=== PATIENT | male | born 1955 | race American Indian/Alaskan Native ===

== ENCOUNTER 2019-02-04 05:56 | Day surgery (SDC) | payer MEDICARE, OTHER ==
[2019-02-04] MEDS ORDERED: ECOTRIN PO ONE (06:23)
[2019-02-04 07:00] LABS: Basophils # (Auto) 0.1 K/mm3 (0.0-0.1); Basophils % (Auto) 1.1 % (0.0-1.8); Eosinophils # (Auto) 0.3 K/mm3 (0.0-0.4); Eosinophils % (Auto) 3.6 % (0.0-4.3); Hematocrit 40.7 % (35.5-45.6); Lymphocytes # (Auto) 2.5 K/mm3 (1.2-5.4); Lymphocytes % (Auto) 30.4 % (13.4-35.0); Mean Corpuscular HGB Conc 32 % (32-34); Mean Corpuscular Volume 78 fl (84-94); Monocytes # (Auto) 0.9 K/mm3 (0.0-0.8); Monocytes % (Auto) 11.2 % (0.0-7.3); Platelet Count 234 K/mm3 (140-440); Red Blood Count 5.26 M/mm3 (3.65-5.03)
[2019-02-04] MEDS ORDERED: NACL 0.9% 500 ML 500 ML IV SCH (07:00)
[2019-02-04 07:10] LABS: INR 1.16 (0.87-1.13); Partial Thromboplastin Time 32.6 Sec. (24.2-36.6)
[2019-02-04 07:14] LABS: BUN/Creatinine Ratio 10; Blood Urea Nitrogen 9 mg/dL (9-20); Calcium 8.2 mg/dL (8.4-10.2); Hemolysis Index 5
[2019-02-04] MEDS ORDERED: HEPARIN/NS 5000 UNIT/500ML(CATH LAB) 1,000 ML IR ONE (08:18)
[2019-02-04] MEDS ORDERED: CALAN ONE (08:19)
[2019-02-04] MEDS ORDERED: XYLOCAINE 2% INFILTRATI ONE (08:19)
[2019-02-04] MEDS ORDERED: NITROGLYCERIN SYRINGE 0 ML ONE (08:19)
[2019-02-04] MEDS: VERSED ONE ×2 (08:38→08:58)
[2019-02-04] MEDS: SUBLIMAZE ONE ×2 (08:38→08:58)
[2019-02-04] MEDS: HEPARIN 10,000 UNITS/10 ML ONE ×2 (08:44→08:57)
[2019-02-04] MEDS ORDERED: NACL 0.9% 100 ML ONE (09:14)
--- NOTE | 2019-02-04 10:28 | Cardiac Catherization Report ---
INDICATION FOR PROCEDURE: The patient is a 63-year-old -Lao gentleman with history of hypertension, diabetes, was noted to have abnormal stress nuclear imaging performed with ST depressions suggestive of ischemia. The patient is scheduled for cataract surgery. Because of abnormal nuclear imaging, even though he is asymptomatic, he is scheduled for cardiac catheterization for further evaluation. The patient was explained of the procedure, potential complications and alternatives of therapy available. DESCRIPTION OF PROCEDURE: The patient was brought to the catheterization laboratory in a fasting condition. The right wrist area and forearm thoroughly cleansed with Betadine solution. Sterile drapes were applied. The patient was evaluated for moderate sedation and was given IV Versed and fentanyl starting at 8:32 a.m. Subsequently, right radial artery puncture was made using 21-gauge arterial puncture needle. A 5-Iraqi slender sheath was introduced. The patient received 3000 units of intravenous heparin and 5 mg of intra-arterial verapamil. A 5-Iraqi multipurpose catheter was used to obtain the angiograms of the left coronary artery and right coronary artery, followed by left ventriculogram done in CASANOVA projection using hand injection. At the end of the procedure, the patient was noted to have moderate disease in the mid to distal RCA and it was decided to proceed with measurement of the FFR. Hence, procedure was converted to interventional procedure. Following findings were noted. HEMODYNAMICS: 1. Opening aortic pressure 210/111. Left ventricular pressure 208/23. End-diastolic pressure of 33 mmHg. No gradient across the aortic valve. Estimated ejection fraction 55%. 2. Left ventriculogram done in CASANOVA projection using hand injection showed normal sized left ventricle with normal contractility. End-diastolic and systolic volumes are normal. Mitral regurgitation could not be evaluated because of limited amount of dye injected. 3. Left coronary artery arises normally from left coronary cusp. Left main is short without any significant disease. LAD and its diagonal branches, circumflex artery and its marginal branches show mild irregularities diffusely. 4. Right coronary artery, dominant vessel, arises normally from right coronary cusp. There is 40% smooth mid lesion and also 60% long smooth distal lesion. Distal to this lesion, RCA is smooth and normal. RCA is tortuous. FINAL IMPRESSION: 1. Normal sized left ventricle with normal contractility with moderate mid and distal RCA lesion with mild irregularities of left coronary system. At this time, we will proceed with functional evaluation of the RCA lesions. 2. Measurement of FFR of the mid and distal RCA: The patient has indwelling 5-Iraqi sheath in right radial artery. Subsequently, a diagnostic catheter was exchanged to 6-Iraqi JR4 guiding catheter. The patient received extra dose of IV heparin. Subsequently, a pressure wire was advanced into the RCA. However, because of tortuosity of the RCA could not advance the wire. A second wire, namely Iron Man was used to give support to the guiding catheter and further attempts at advancing the pressure wire distal to the lesion. FFR was measured in a standard fashion using IV, it was found to be 0.84, after infusing the adenosine for 2 minutes. This was felt to be nonischemic finding. Final angiograms were obtained and no complications were noted. Wires and guiding catheter were removed. Good hemostasis was achieved in the radial artery using radial band. No untoward complications were noted. Moderate sedation was started at around 8:32 a.m., ended at 9:33 a.m. Throughout the procedure, the patient was monitored with pulse oximetry, EKG monitoring and hemodynamic monitoring. The patient does have intermittent AV block. Most likely, this may be Wenckebach type of block. Moderate disease in the mid and distal RCA and functional evaluation with FFR was found to be nonischemic with FFR of 0.84. Considering the above findings, the patient will be continued on risk factor modification and medical therapy. Also to be noted, the patient's blood pressure is significantly elevated throughout the procedure with systolic in the range of 200-210 mmHg. Findings were explained to the patient and . [facility]# [id number] GENE/DAVID
[2019-02-04] MEDS ORDERED: APRESOLINE PO SCH (11:20)
[2019-02-04] MEDS ORDERED: APRESOLINE ONE (11:25)
--- NOTE | 2019-02-04 12:06 | Short Stay Summary ---
Short Stay Documentation Date of service: 02/04/19 - History H&P: obtained from office - Allergies and Medications Current Medications: Allergies No Known Allergies Allergy (Unverified 02/04/19 05:57) Home Medications Medication Instructions Recorded Confirmed Last Taken Type Aspirin [Adult Aspirin] 81 mg PO DAILY 02/04/19 02/04/19 02/03/19 History Carvedilol [Coreg] 25 mg PO BID 02/04/19 02/04/19 02/03/19 History Ezetimibe [Zetia] 10 mg PO DAILY 02/04/19 02/04/19 02/03/19 History Fenofibric Acid (Choline) 135 mg PO DAILY 02/04/19 02/04/19 02/03/19 History [Fenofibric Acid] Insulin NPH Hum/Reg Insulin Hm 40 units SQ QPM 02/04/19 02/04/19 02/03/19 History [Relion Novolin 70-30 Vial] Insulin NPH/Regular [Novolin 70/30] 70 unit SQ QAM 02/04/19 02/04/19 02/03/19 History Rosuvastatin Calcium [Crestor] 20 mg PO DAILY 02/04/19 02/04/19 02/03/19 History Verapamil [Calan] 120 mg PO TID 02/04/19 02/04/19 02/03/19 History metFORMIN [Glucophage] 500 mg PO BID 02/04/19 02/04/19 02/03/19 History Active Medications Hydralazine HCl (Apresoline) 50 mg PO NOW MASHA Last Admin: 02/04/19 11:37 Dose: 50 mg Documented by: Sodium Chloride (Nacl 0.9% 500 Ml) 500 mls @ 50 mls/hr IV DIRECT MASHA Stop: 02/04/19 16:59 Last Admin: 02/04/19 06:54 Dose: 50 mls/hr Documented by: - Brief post op/procedure progress note Date of procedure: 02/04/19 Pre-op diagnosis: abnormal stress test Post-op diagnosis: other (CAD) Procedure: [facility] - see dictated cath report Anesthesia: local Estimated blood loss: none Condition: stable - Disposition Condition at discharge: Good Disposition: DC-01 TO HOME OR SELFCARE - Discharge Diagnoses (1) CAD (coronary artery disease) Status: Chronic (2) HTN (hypertension) Status: Chronic (3) Diabetes Status: Chronic Short Stay Discharge Plan Activity: advance as tolerated Diet: low fat, low cholesterol, low salt Wound: open to air, keep clean and dry, per your surgeon's advice Follow up with: CRYS REYES MD [Primary Care Provider] - 7 Days
[2019-02-04 13:20] VITALS: BP 176/70
== END 2019-02-04 13:35 | disposition home or self-care (01) ==
LOC: CATHLABREC 05:56
PROVIDERS: ATTEND Internal Medicine
DX: I25.10 Atherosclerotic heart disease of native coronary artery without angina pectoris (principal); I10 Essential (primary) hypertension; E11.9 Type 2 diabetes mellitus without complications; E78.5 Hyperlipidemia, unspecified; F17.210 Nicotine dependence, cigarettes, uncomplicated; R79.1 Abnormal coagulation profile; Z79.82 Long term (current) use of aspirin; Z79.4 Long term (current) use of insulin; Z79.84 Long term (current) use of oral hypoglycemic drugs; Z79.899 Other long term (current) drug therapy; Z98.890 Other specified postprocedural states
CPT/HCPCS: 36415; 80048; 85025; 85610; 85730; 93005; 93010; 93458; 93571; 99156; 99157; C1769; C1887; C1894; J0153; J1644; J2250; J3010; J7040; Q9967

== ENCOUNTER 2019-02-07 11:13 | Inpatient (IN) | payer MEDICARE, OTHER ==
[2019-02-07 13:08] LABS: Basophils # (Auto) 0.1 K/mm3 (0.0-0.1); Basophils % (Auto) 0.9 % (0.0-1.8); Eosinophils # (Auto) 0.2 K/mm3 (0.0-0.4); Eosinophils % (Auto) 1.6 % (0.0-4.3); Hematocrit 40.4 % (35.5-45.6); Hemoglobin 12.9 gm/dl (11.8-15.2); Lymphocytes # (Auto) 2.4 K/mm3 (1.2-5.4); Lymphocytes % (Auto) 24.8 % (13.4-35.0); Mean Corpuscular HGB Conc 32 % (32-34); Mean Corpuscular Volume 77 fl (84-94); Monocytes # (Auto) 0.9 K/mm3 (0.0-0.8); Monocytes % (Auto) 9.8 % (0.0-7.3); Platelet Count 251 K/mm3 (140-440); Red Blood Count 5.22 M/mm3 (3.65-5.03); Red Cell Distribution Width 17.7 % (13.2-15.2)
[2019-02-07 13:19] LABS: INR 1.04 (0.87-1.13)
[2019-02-07 13:23] LABS: Alanine Aminotransferase 10 units/L (7-56); Albumin 3.1 g/dL (3.9-5); BUN/Creatinine Ratio 11; Blood Urea Nitrogen 12 mg/dL (9-20); Calcium 8.7 mg/dL (8.4-10.2); Hemolysis Index 8
--- NOTE | 2019-02-07 13:25 | XRay Report ---
CHEST 1 VIEW INDICATION: chest pain. COMPARISON: None. FINDINGS: Support devices: None. Heart: Normal. Lungs/Pleura: Mild diffuse predominantly interstitial bilateral pulmonary opacities are noted suggest khang of pulmonary edema. There may be a trace right pleural effusion. No pneumothorax. IMPRESSION: 1. Mild diffuse interstitial opacities are suggestive of mild pulmonary edema. Signer Name: Frank Plascencia MD Signed: 02/07/2019 1:20 PM Workstation Name: [id number]
--- NOTE | 2019-02-07 14:14 | Consultation ---
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 He is followed in our office with Dr. Hanks. Pt underwent OP LHC (pt is pending eye surgery, underwent stress test which was abnormal and thus LHC) on 02/04/2019 which showed moderate disease in mid and distal RCA, medical therapy recommended. He presented to our office today for post-cath f/u and c/o dizziness since this morning. ECG in office showed junctional rhythm at 32 bpm, complete AV block with underlying junctional escape beatsand thus pt was referred to ED for further eval/management. Following arrival to ED, pt found to be in sinus bradycardia HR 40s with intermittent junctional rhythm and 2nd degree type I and II AVB. Pt is alert and oriented on evaluation with BPs WNL, no current complaints. Pt has been taking coreg 25mg BID at home and he reports his last dose of coreg was this morning. Pt denies any chest pain, SOB, palpitations, n/v, diaphoresis, dizziness or syncope. Echo done 01/20/2019 showed EF 55-60%, mild LVH. Past History Past Medical History: arrhythmia, CAD, diabetes, hypertension, hyperlipidemia Medications and Allergies Allergies Allergy/AdvReac Type Severity Reaction Status Date / Time No Known Allergies Allergy Unverified 02/04/19 05:57 Home Medications Medication Instructions Recorded Confirmed Last Taken Type Aspirin [Adult Aspirin] 81 mg PO DAILY 02/04/19 02/04/19 02/03/19 History Carvedilol [Coreg] 25 mg PO BID 02/04/19 02/04/19 02/03/19 History Ezetimibe [Zetia] 10 mg PO DAILY 02/04/19 02/04/19 02/03/19 History Fenofibric Acid (Choline) 135 mg PO DAILY 02/04/19 02/04/19 02/03/19 History [Fenofibric Acid] Insulin NPH Hum/Reg Insulin Hm 40 units SQ QPM 02/04/19 02/04/19 02/03/19 History [Relion Novolin 70-30 Vial] Insulin NPH/Regular [Novolin 70/30] 70 unit SQ QAM 02/04/19 02/04/19 02/03/19 History Rosuvastatin Calcium [Crestor] 20 mg PO DAILY 02/04/19 02/04/19 02/03/19 History Verapamil [Calan] 120 mg PO TID 02/04/19 02/04/19 02/03/19 History metFORMIN [Glucophage] 500 mg PO BID 02/04/19 02/04/19 02/03/19 History Review of Systems Constitutional: no weight loss, no weight gain, no fever, no chills, no sweats Ears, nose, mouth and throat: no ear pain, no nose pain, no sinus pressure, no sinus pain Cardiovascular: lightheadedness, no chest pain, no orthopnea, no palpitations, no rapid/irregular heart beat, no edema, no syncope, no shortness of breath, no dyspnea on exertion, no leg edema Respiratory: no cough, no shortness of breath, no dyspnea on exertion, no con gestion, no wheezing, no pain on inspiration Gastrointestinal: no abdominal pain, no nausea, no vomiting, no diarrhea, no constipation, no change in bowel habits Genitourinary Male: no dysuria, no hematuria, no flank pain, no discharge, no urinary frequency, no urinary hesitancy Musculoskeletal: no neck stiffness, no neck pain, no shooting arm pain, no arm numbness/tingling, no low back pain, no shooting leg pain Integumentary: no rash, no pruritis, no redness, no sores, no wounds Neurological: weakness (generalized ), other (lightheadedness), no head injury, no paralysis, no parathesias, no numbness, no tingling, no seizures, no syncope Psychiatric: no anxiety Endocrine: no cold intolerance, no heat intolerance Hematologic/Lymphatic: no easy bruising, no easy bleeding Allergic/Immunologic: no urticaria, no wheezing Physical Examination Vital Signs Temp Pulse Resp BP Pulse Ox 98.1 F 47 L 18 124/64 95 02/07/19 11:45 02/07/19 11:45 02/07/19 11:45 02/07/19 11:45 02/07/19 11:45 General appearance: no acute distress HEENT: Positive: PERRL, Normocephaly, Mucus Membranes Moist Neck: Positive: neck supple, trachea midline Cardiac: Positive: S1/S2, Bradycardia Lungs: Positive: Decreased Breath Sounds Neuro: Positive: Grossly Intact Abdomen: Negative: Tender Skin: Negative: Rash Musculoskeletal: No Pain Extremities: Absent: edema Results 02/07/19 12:44 02/07/19 12:44 Cardiac Enzymes 02/07/19 Range/Units 12:44 AST 17 (5-40) units/L Coagulation 02/07/19 Range/Units 12:44 PT 13.3 (12.2-14.9) Sec. INR 1.04 (0.87-1.13) APTT 33.0 (24.2-36.6) Sec. CBC 02/07/19 Range/Units 12:44 WBC 9.6 (4.5-11.0) K/mm3 RBC 5.22 H (3.65-5.03) M/mm3 Hgb 12.9 (11.8-15.2) gm/dl Hct 40.4 (35.5-45.6) % Plt Count 251 (140-440) K/mm3 Lymph # 2.4 (1.2-5.4) K/mm3 Hawkins # 0.9 H (0.0-0.8) K/mm3 Eos # 0.2 (0.0-0.4) K/mm3 Baso # 0.1 (0.0-0.1) K/mm3 Comprehensive Metabolic Panel 02/07/19 Range/Units 12:44 Sodium 136 L (137-145) mmol/L Potassium 4.6 D (3.6-5.0) mmol/L Chloride 100.2 (98-107) mmol/L Carbon Dioxide 27 (22-30) mmol/L BUN 12 (9-20) mg/dL Creatinine 1.1 (0.8-1.5) mg/dL Glucose 98 (75-100) mg/dL Calcium 8.7 (8.4-10.2) mg/dL AST 17 (5-40) units/L ALT 10 (7-56) units/L Alkaline Phosphatase 79 (35-129) units/L Total Protein 7.0 (6.3-8.2) g/dL Albumin 3.1 L (3.9-5) g/dL - Imaging and Cardiology Echo: report reviewed (01/20/2019 showed EF 55-60%, mild LVH. ) Cardiac cath: report reviewed (02/04/2019 which showed moderate disease in mid and distal RCA, medical therapy recommended) EKG: report reviewed, image reviewed EKG interpretations - Telemetry EKG Rhythm: 2nd Degree HB(Mobitz II) AV and intraventricular conduction: Mobitz II 2 AV block Assessment and Plan D/c coreg, hold all AV isauro blocking agents. Initiate IVF. Obtain serum Mg and thyroid profile. Pt currently appears clinically and hemodynamically stable, no indication for TVP. Obtain EP consultation for possible PPM. NPO after MN in the event that pacemaker is required. Further recs to follow per hospital course. The patient has been seen in conjunction with Dr. Ke Srivastava who agrees with the assessment and plan of care. - Patient Problems (1) High degree atrioventricular block Current Visit: Yes Status: Acute (2) Symptomatic bradycardia Current Visit: Yes Status: Acute (3) Nonobstructive atherosclerosis of coronary artery Current Visit: Yes Status: Chronic (4) Hyperlipidemia Current Visit: Yes Status: Chronic (5) Diabetes Current Visit: Yes Status: Chronic (6) HTN (hypertension) Current Visit: Yes Status: Chronic
--- NOTE | 2019-02-07 14:51 | Emergency Department Report ---
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 Patient states that upon standing to go from the lobby of his physician's office to the exam room to get really dizzy and almost passed out. Patient status post a cardiac cath is currently on Coreg. Upon EMS arrival the patient's heart rate was in the 30s and was given 1 mg of atropine. Patient states besides being dizzy initially has no complaints. Patient has chest pain, shortness breath, or abdominal pain. -: Gradual Severity scale (0 -10): 0 Improves with: none Worsens with: none Associated Symptoms: denies other symptoms Treatments Prior to Arrival: none - Related Data Home Medications Medication Instructions Recorded Confirmed Last Taken Aspirin [Adult Aspirin] 81 mg PO DAILY 02/04/19 02/04/19 02/03/19 Carvedilol [Coreg] 25 mg PO BID 02/04/19 02/04/19 02/03/19 Ezetimibe [Zetia] 10 mg PO DAILY 02/04/19 02/04/19 02/03/19 Fenofibric Acid (Choline) 135 mg PO DAILY 02/04/19 02/04/19 02/03/19 [Fenofibric Acid] Insulin NPH Hum/Reg Insulin Hm 40 units SQ QPM 02/04/19 02/04/19 02/03/19 [Relion Novolin 70-30 Vial] Insulin NPH/Regular [Novolin 70/30] 70 unit SQ QAM 02/04/19 02/04/19 02/03/19 Rosuvastatin Calcium [Crestor] 20 mg PO DAILY 02/04/19 02/04/19 02/03/19 Verapamil [Calan] 120 mg PO TID 02/04/19 02/04/19 02/03/19 metFORMIN [Glucophage] 500 mg PO BID 02/04/19 02/04/19 02/03/19 Allergies Allergy/AdvReac Type Severity Reaction Status Date / Time No Known Allergies Allergy Unverified 02/04/19 05:57 ED Review of Systems ROS: Stated complaint: BRADYCARDIA Other details as noted in HPI Comment: All other systems reviewed and negative Constitutional: denies: chills, fever Eyes: denies: eye pain, eye discharge, vision change ENT: denies: ear pain, throat pain Respiratory: denies: cough, shortness of breath, wheezing Cardiovascular: denies: chest pain, palpitations Endocrine: no symptoms reported Gastrointestinal: denies: abdominal pain, nausea, diarrhea Genitourinary: denies: urgency, dysuria Musculoskeletal: denies: back pain, joint swelling, arthralgia Skin: denies: rash, lesions Neurological: denies: headache, weakness, paresthesias Psychiatric: denies: anxiety, depression Hematological/Lymphatic: denies: easy bleeding, easy bruising ED Past Medical Hx - Past Medical History Previous Medical History?: Yes Hx Hypertension: Yes Hx Heart Attack/AMI: No Hx Diabetes: Yes Hx HIV: No - Social History Smoking Status: Current Some Day Smoker Substance Use Type: Alcohol - Medications Home Medications: Home Medications Medication Instructions Recorded Confirmed Last Taken Type Aspirin [Adult Aspirin] 81 mg PO DAILY 02/04/19 02/04/19 02/03/19 History Carvedilol [Coreg] 25 mg PO BID 02/04/19 02/04/19 02/03/19 History Ezetimibe [Zetia] 10 mg PO DAILY 02/04/19 02/04/19 02/03/19 History Fenofibric Acid (Choline) 135 mg PO DAILY 02/04/19 02/04/19 02/03/19 History [Fenofibric Acid] Insulin NPH Hum/Reg Insulin Hm 40 units SQ QPM 02/04/19 02/04/19 02/03/19 History [Relion Novolin 70-30 Vial] Insulin NPH/Regular [Novolin 70/30] 70 unit SQ QAM 02/04/19 02/04/19 02/03/19 History Rosuvastatin Calcium [Crestor] 20 mg PO DAILY 02/04/19 02/04/19 02/03/19 History Verapamil [Calan] 120 mg PO TID 02/04/19 02/04/19 02/03/19 History metFORMIN [Glucophage] 500 mg PO BID 02/04/19 02/04/19 02/03/19 History ED Physical Exam - General Limitations: No Limitations General appearance: alert, in no apparent distress - Head Head exam: Present: atraumatic, normocephalic - Eye Eye exam: Present: normal appearance - ENT ENT exam: Present: mucous membranes moist - Neck Neck exam: Present: normal inspection - Respiratory Respiratory exam: Present: normal lung sounds bilaterally. Absent: respiratory distress - Cardiovascular Cardiovascular Exam: Present: normal rhythm, bradycardia. Absent: systolic murmur, diastolic murmur, rubs, gallop - GI/Abdominal GI/Abdominal exam: Present: soft, normal bowel sounds. Absent: distended, tenderness - Rectal Rectal exam: Present: deferred - Extremities Exam Extremities exam: Present: normal inspection - Back Exam Back exam: Present: normal inspection - Neurological Exam Neurological exam: Present: alert, oriented X3, CN II-XII intact. Absent: motor sensory deficit - Psychiatric Psychiatric exam: Present: normal affect, normal mood - Skin Skin exam: Present: warm, dry, intact, normal color. Absent: rash ED Course Vital Signs 02/07/19 02/07/19 02/07/19 11:45 11:59 14:03 Temperature 98.1 F Pulse Rate 47 L 37 L Respiratory 18 18 21 Rate Blood Pressure 124/64 Blood Pressure 124/64 141/62 [Right] O2 Sat by Pulse 95 95 99 Oximetry ED Medical Decision Making - Lab Data Result diagrams: 02/07/19 12:44 02/07/19 12:44 Lab Results 02/07/19 02/07/19 02/07/19 Range/Units 12:44 12:44 12:44 WBC 9.6 (4.5-11.0) K/mm3 RBC 5.22 H (3.65-5.03) M/mm3 Hgb 12.9 (11.8-15.2) gm/dl Hct 40.4 (35.5-45.6) % MCV 77 L (84-94) fl MCH 25 L (28-32) pg MCHC 32 (32-34) % RDW 17.7 H (13.2-15.2) % Plt Count 251 (140-440) K/mm3 Lymph % (Auto) 24.8 (13.4-35.0) % Riley % (Auto) 9.8 H (0.0-7.3) % Eos % (Auto) 1.6 (0.0-4.3) % Baso % (Auto) 0.9 (0.0-1.8) % Lymph # 2.4 (1.2-5.4) K/mm3 Riley # 0.9 H (0.0-0.8) K/mm3 Eos # 0.2 (0.0-0.4) K/mm3 Baso # 0.1 (0.0-0.1) K/mm3 Seg Neutrophils % 62.9 (40.0-70.0) % Seg Neutrophils # 6.0 (1.8-7.7) K/mm3 PT 13.3 (12.2-14.9) Sec. INR 1.04 (0.87-1.13) APTT 33.0 (24.2-36.6) Sec. Sodium 136 L (137-145) mmol/L Potassium 4.6 D (3.6-5.0) mmol/L Chloride 100.2 (98-107) mmol/L Carbon Dioxide 27 (22-30) mmol/L Anion Gap 13 mmol/L BUN 12 (9-20) mg/dL Creatinine 1.1 (0.8-1.5) mg/dL Estimated GFR > 60 ml/min BUN/Creatinine Ratio 11 % Glucose 98 (75-100) mg/dL Calcium 8.7 (8.4-10.2) mg/dL Total Bilirubin 0.30 (0.1-1.2) mg/dL AST 17 (5-40) units/L ALT 10 (7-56) units/L Alkaline Phosphatase 79 (35-129) units/L NT-Pro-B Natriuret Pep 335.6 (0-900) pg/mL Total Protein 7.0 (6.3-8.2) g/dL Albumin 3.1 L (3.9-5) g/dL Albumin/Globulin Ratio 0.8 % - EKG Data -: EKG Interpreted by Hi EKG shows normal: sinus rhythm Rate: bradycardia - Radiology Data Radiology results: report reviewed - Medical Decision Making Patient was seen by cardiology in the ED Coreg would be discontinued Critical care attestation.: If time is entered above; I have spent that time in minutes in the direct care of this critically ill patient, excluding procedure time. ED Disposition Clinical Impression: Symptomatic bradycardia Disposition: OP ADMIT IP TO THIS HOSP Is pt being admited?: Yes Does the pt Need Aspirin: Yes Condition: Fair Referrals: CRYS REYES MD [Primary Care Provider] - 3-5 Days
[2019-02-07] MEDS ORDERED: SODIUM CHLORIDE 0.9% 1000 ML 1,000 ML IV SCH (15:00)
[2019-02-07] MEDS ORDERED: HYDROmorphone 1 MG/1 ML INJ IV PRN (17:31)
[2019-02-07] MEDS ORDERED: ACETAMINOPHEN 325 MG TAB PO PRN (17:31)
[2019-02-07] MEDS ORDERED: ONDANSETRON 4 MG/2 ML INJ IV PRN (17:31)
[2019-02-07] MEDS ORDERED: FENOFIBRIC ACID 135 MG PO SCH (17:45)
[2019-02-07] MEDS ORDERED: NON-FORMULARY EACH (Rosuvastatin Calcium [Crestor] 20 MG) PO SCH (17:45)
--- NOTE | 2019-02-07 18:54 | Progress Note ---
Assessment and Plan 63 Nonobstructive CAD Hypertension Hyperlipidemia Intermittent complete heart block/symptomatic bradycardia. I had a lengthy discussion with the patient and his regarding my recommendations for dual- chamber permanent pacemaker. They are in agreement. We will schedule him as an inpatient. Subjective Date of service: 02/07/19 Principal diagnosis: intermittent complete heart block Interval history: This is a 63-year-old male with a past medical history of nonobstructive CAD, hypertension, and hyperlipidemia who recently underwent a left heart catheterization was 02/04/2019 and noted to have moderate disease of the right coronary artery with recommendations for medical management at this time. The patient presented to his primary etl developer's office with complaints of dizziness and lightheadedness. An EKG reveals complete heart block with a junctional escape rhythm at 32 bpm. Objective Vital Signs Temp Pulse Resp BP BP Pulse Ox 02/07/19 18:01 50 L 15 151/44 92 02/07/19 17:01 42 L 12 130/59 91 02/07/19 16:15 35 L 11 L 124/59 98 02/07/19 16:01 34 L 26 H 124/59 97 02/07/19 15:45 33 L 24 120/51 99 02/07/19 15:31 32 L 17 120/51 97 02/07/19 15:15 34 L 19 126/33 97 02/07/19 15:03 37 L 20 141/62 99 02/07/19 15:01 38 L 25 H 126/33 96 02/07/19 14:45 35 L 22 143/112 98 02/07/19 14:31 40 L 10 L 143/112 93 02/07/19 14:15 34 L 20 141/62 97 02/07/19 14:03 37 L 21 141/62 99 02/07/19 14:01 36 L 26 H 141/62 97 02/07/19 13:45 33 L 19 139/65 98 02/07/19 13:31 35 L 22 139/65 98 02/07/19 13:15 39 L 16 132/62 97 02/07/19 13:01 36 L 14 132/62 96 02/07/19 12:45 36 L 20 128/59 96 02/07/19 12:31 42 L 15 128/59 97 02/07/19 12:15 39 L 20 133/63 96 02/07/19 12:01 38 L 22 133/63 98 02/07/19 11:59 18 95 02/07/19 11:45 98.1 F 42 L 16 124/64 124/64 97 02/07/19 11:30 52 L 15 124/64 99 02/07/19 11:24 17 - Physical Examination HEENT: Positive: PERRL, Normocephaly, Mucus Membranes Moist Neck: Positive: neck supple, trachea midline Cardiac: Positive: Reg Rate and Rhythm Lungs: Positive: Normal Exam Neuro: Positive: Grossly Intact Abdomen: Positive: Soft, Active Bowel Sounds. Negative: Tender Skin: Negative: Rash Musculoskeletal: No Pain Extremities: Absent: edema - Labs and Meds Cardiac Enzymes 02/07/19 Range/Units 12:44 AST 17 (5-40) units/L Coagulation 02/07/19 Range/Units 12:44 PT 13.3 (12.2-14.9) Sec. INR 1.04 (0.87-1.13) APTT 33.0 (24.2-36.6) Sec. CBC 02/07/19 Range/Units 12:44 WBC 9.6 (4.5-11.0) K/mm3 RBC 5.22 H (3.65-5.03) M/mm3 Hgb 12.9 (11.8-15.2) gm/dl Hct 40.4 (35.5-45.6) % Plt Count 251 (140-440) K/mm3 Lymph # 2.4 (1.2-5.4) K/mm3 Davie # 0.9 H (0.0-0.8) K/mm3 Eos # 0.2 (0.0-0.4) K/mm3 Baso # 0.1 (0.0-0.1) K/mm3 Comprehensive Metabolic Panel 02/07/19 Range/Units 12:44 Sodium 136 L (137-145) mmol/L Potassium 4.6 D (3.6-5.0) mmol/L Chloride 100.2 (98-107) mmol/L Carbon Dioxide 27 (22-30) mmol/L BUN 12 (9-20) mg/dL Creatinine 1.1 (0.8-1.5) mg/dL Glucose 98 (75-100) mg/dL Calcium 8.7 (8.4-10.2) mg/dL AST 17 (5-40) units/L ALT 10 (7-56) units/L Alkaline Phosphatase 79 (35-129) units/L Total Protein 7.0 (6.3-8.2) g/dL Albumin 3.1 L (3.9-5) g/dL - Imaging and Cardiology EKG: report reviewed, image reviewed Echo: report reviewed (01/20/2019 showed EF 55-60%, mild LVH. ) Cardiac cath: report reviewed (02/04/2019 which showed moderate disease in mid and distal RCA, medical therapy recommended) AV and intraventricular conduction: Mobitz II 2 AV block
[2019-02-07] MEDS: INSULIN NPH/REGULAR 70/30 INJ SUB-Q SCH (22:30)
[2019-02-07] MEDS: FAMOTIDINE 20 MG/2 ML INJ IV SCH (22:30)
[2019-02-07] MEDS: metFORMIN 500 MG TAB PO SCH (22:30)
[2019-02-08 05:38] LABS: INR 1.06 (0.87-1.13)
[2019-02-08 05:39] LABS: Hematocrit 38.3 % (35.5-45.6); Hemoglobin 12.1 gm/dl (11.8-15.2); Mean Corpuscular HGB Conc 32 % (32-34); Mean Corpuscular Volume 77 fl (84-94); Platelet Count 243 K/mm3 (140-440); Red Blood Count 4.98 M/mm3 (3.65-5.03); Red Cell Distribution Width 17.8 % (13.2-15.2)
--- NOTE | 2019-02-08 05:58 | History and Physical Report ---
History of Present Illness Date of examination: 02/07/19 Date of admission: 02/07/19 17:31 Chief complaint: Dizzy and near Syncope this am in Medical Practice Manager office History of present illness: 63 y/o male Patient presents to the emergency department from his piper installer's office for bradycardia. Patient states that upon standing to go from the lobby of his physician's office to the exam room he got really dizzy and almost passed out. Patient is status post cardiac cath currently on Coreg and Verapamil. Upon EMS arrival the patient's heart rate was in the 30s and was given 1 mg of atropine. Patient states besides being dizzy initially has no complaints. Patient has no chest pain, shortness breath, or abdominal pain. 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 Pt underwent OP LHC --pending eye surgery, underwent stress test which was abnormal and thus LHC on 02/04/2019 which showed moderate disease in mid and distal RCA, medical therapy recommended. Presented to [facility] office --Dr Hanks today for post- cath f/u and c/o dizziness since this morning. ECG in office showed junctional rhythm at 32 bpm, complete AV block with underlying junctional escape beats and thus pt was referred to ED for further eval/management. Echo done 01/20/2019 showed EF 55-60%, mild LVH. Past Medical History Previous Medical History?: Yes Hypertension: Yes Heart Attack/AMI: No Diabetes: Yes Surgical History LHC Family History Htn Social History Smoking Status: Current Some Day Smoker Substance Use Type: Alcohol - Medications Home Medications: Home Medications Medication Instructions Recorded Confirmed Last Taken Type Aspirin [Adult Aspirin] 81 mg PO DAILY 02/04/19 02/04/19 02/03/19 History Carvedilol [Coreg] 25 mg PO BID 02/04/19 02/04/19 02/03/19 History Ezetimibe [Zetia] 10 mg PO DAILY 02/04/19 02/04/19 02/03/19 History Fenofibric Acid (Choline) 135 mg PO DAILY 02/04/19 02/04/19 02/03/19 History [Fenofibric Acid] Insulin NPH Hum/Reg Insulin Hm 40 units SQ QPM 02/04/19 02/04/19 02/03/19 History [Relion Novolin 70-30 Vial] Insulin NPH/Regular [Novolin 70/30] 70 unit SQ QAM 02/04/19 02/04/19 02/03/19 History Rosuvastatin Calcium [Crestor] 20 mg PO DAILY 02/04/19 02/04/19 02/03/19 History Verapamil [Calan] 120 mg PO TID 02/04/19 02/04/19 02/03/19 History metFORMIN [Glucophage] 500 mg PO BID 02/04/19 02/04/19 02/03/19 History Review of Systems Constitutional: no weight loss, no weight gain, no fever, no chills, no sweats Ears, nose, mouth and throat: no ear pain, no nose pain, no sinus pressure, no sinus pain Cardiovascular: lightheadedness, no chest pain, no orthopnea, no palpitations, no rapid/irregular heart beat, no edema, no syncope, no shortness of breath, no dyspnea on exertion, no leg edema Respiratory: no cough, no shortness of breath, no dyspnea on exertion, no congestion, no wheezing, no pain on inspiration Gastrointestinal: no abdominal pain, no nausea, no vomiting, no diarrhea, no constipation, no change in bowel habits Genitourinary Male: no dysuria, no hematuria, no flank pain, no discharge, no urinary frequency, no urinary hesitancy Musculoskeletal: no neck stiffness, no neck pain, no shooting arm pain, no arm numbness/tingling, no low back pain, no shooting leg pain Integumentary: no rash, no pruritis, no redness, no sores, no wounds Neurological: weakness (generalized ), other (lightheadedness), no head injury, no paralysis, no parathesias, no numbness, no tingling, no seizures, no syncope Psychiatric: no anxiety Endocrine: no cold intolerance, no heat intolerance Hematologic/Lymphatic: no easy bruising, no easy bleeding Allergic/Immunologic: no urticaria, no wheezing Past History Past Medical History: arrhythmia, CAD, diabetes, hypertension, hyperlipidemia Medications and Allergies Allergies Allergy/AdvReac Type Severity Reaction Status Date / Time No Known Allergies Allergy Unverified 02/04/19 05:57 Home Medications Medication Instructions Recorded Confirmed Last Taken Type Aspirin [Adult Aspirin] 81 mg PO DAILY 02/04/19 02/07/19 02/07/19 History Carvedilol [Coreg] 25 mg PO BID 02/04/19 02/07/19 02/07/19 History Ezetimibe [Zetia] 10 mg PO DAILY 02/04/19 02/07/19 02/07/19 History Fenofibric Acid (Choline) 135 mg PO DAILY 02/04/19 02/07/19 02/07/19 History [Fenofibric Acid] Insulin NPH Hum/Reg Insulin Hm 40 units SQ QPM 02/04/19 02/07/19 02/06/19 History [Relion Novolin 70-30 Vial] Insulin NPH/Regular [Novolin 70/30] 70 unit SQ QAM 02/04/19 02/07/19 02/06/19 History Rosuvastatin Calcium [Crestor] 20 mg PO DAILY 02/04/19 02/07/19 02/07/19 History Verapamil [Calan] 120 mg PO TID 02/04/19 02/07/19 02/07/19 History metFORMIN [Glucophage] 500 mg PO BID 02/04/19 02/07/19 02/07/19 History Active Meds: Active Medications Acetaminophen (Tylenol) 650 mg PO Q4H PRN PRN Reason: Pain MILD(1-3)/Fever >100.5/AYALA Aspirin (Aspirin) 325 mg PO QDAY [facility] Atorvastatin Calcium (Lipitor) 40 mg PO QHS [facility] Last Admin: 02/07/19 22:30 Dose: 40 mg Documented by: Ezetimibe (Zetia) 10 mg PO DAILY [facility] Famotidine (Pepcid) 20 mg IV BID [facility] Last Admin: 02/07/19 22:30 Dose: 20 mg Documented by: Hydromorphone HCl (Dilaudid) 0.5 mg IV Q3H PRN PRN Reason: Pain , Severe (7-10) Sodium Chloride (Nacl 0.9% 1000 Ml) 1,000 mls @ 75 mls/hr IV DIRECT [facility] Last Admin: 02/07/19 22:35 Dose: 75 mls/hr Documented by: Insulin Human Isoph/Insulin Regular (Humulin 70/30) 40 unit SUB-Q QPM [facility] Last Admin: 02/07/19 22:30 Dose: Not Given Documented by: Insulin Human Isoph/Insulin Regular (Humulin 70/30) 70 unit SUB-Q QAMDIAB [facility] Metformin HCl (Glucophage) 500 mg PO BID [facility] Last Admin: 02/07/19 22:30 Dose: Not Given Documented by: Miscellaneous Medication (Fenofibric Acid (Choline) [Fenofibric Acid]) 135 mg PO DAILY [facility] Ondansetron HCl (Zofran) 4 mg IV Q8H PRN PRN Reason: Nausea And Vomiting Oxycodone/Acetaminophen (Percocet 5/325) 1 tab PO Q6H PRN PRN Reason: Pain, Moderate (4-6) Sodium Chloride (Sodium Chloride Flush Syringe 10 Ml) 10 ml IV BID [facility] Last Admin: 02/07/19 22:30 Dose: 10 ml Documented by: Sodium Chloride (Sodium Chloride Flush Syringe 10 Ml) 10 ml IV PRN PRN PRN Reason: LINE FLUSH Exam - Constitutional Vitals: Temp Pulse Resp BP Pulse Ox 98.5 F 51 L 16 161/66 93 02/08/19 03:25 02/08/19 03:25 02/08/19 03:25 02/08/19 03:25 02/08/19 03:25 General appearance: Present: no acute distress, well-nourished - EENT Eyes: Present: PERRL ENT: hearing intact, clear oral mucosa - Neck Neck: Present: supple, normal ROM - Respiratory Respiratory effort: normal Respiratory: bilateral: CTA - Cardiovascular Heart rate: 36 Rhythm: regular Heart Sounds: Present: S1 & S2. Absent: rub, click - Extremities Extremities: no ischemia, pulses intact, pulses symmetrical, No edema Peripheral Pulses: within normal limits - Abdominal General gastrointestinal: Present: soft, non-tender, non-distended, normal bowel sounds Male genitourinary: Present: normal - Rectal Rectal Exam: deferred - Integumentary Integumentary: Present: clear, warm, dry - Musculoskeletal Musculoskeletal: gait normal, strength equal bilaterally - Psychiatric Psychiatric: appropriate mood/affect, intact judgment & insight - Neurologic Neurologic: CNII-XII intact, moves all extremities - Allied Health Allied health notes reviewed: nursing, case management Results - Labs CBC & Chem 7: 02/08/19 04:47 02/08/19 04:47 Labs: Laboratory Last Values WBC 9.2 K/mm3 (4.5-11.0) 02/08/19 04:47 RBC 4.98 M/mm3 (3.65-5.03) 02/08/19 04:47 Hgb 12.1 gm/dl (11.8-15.2) 02/08/19 04:47 Hct 38.3 % (35.5-45.6) 02/08/19 04:47 MCV 77 fl (84-94) L 02/08/19 04:47 MCH 24 pg (28-32) L 02/08/19 04:47 MCHC 32 % (32-34) 02/08/19 04:47 RDW 17.8 % (13.2-15.2) H 02/08/19 04:47 Plt Count 243 K/mm3 (140-440) 02/08/19 04:47 Lymph % (Auto) 24.8 % (13.4-35.0) 02/07/19 12:44 [place] % (Auto) 9.8 % (0.0-7.3) H 02/07/19 12:44 Eos % (Auto) 1.6 % (0.0-4.3) 02/07/19 12:44 Baso % (Auto) 0.9 % (0.0-1.8) 02/07/19 12:44 Lymph # 2.4 K/mm3 (1.2-5.4) 02/07/19 12:44 [place] # 0.9 K/mm3 (0.0-0.8) H 02/07/19 12:44 Eos # 0.2 K/mm3 (0.0-0.4) 02/07/19 12:44 Baso # 0.1 K/mm3 (0.0-0.1) 02/07/19 12:44 Seg Neutrophils % 62.9 % (40.0-70.0) 02/07/19 12:44 Seg Neutrophils # 6.0 K/mm3 (1.8-7.7) 02/07/19 12:44 PT 13.5 Sec. (12.2-14.9) 02/08/19 04:47 INR 1.06 (0.87-1.13) 02/08/19 04:47 APTT 33.0 Sec. (24.2-36.6) 02/07/19 12:44 Sodium 136 mmol/L (137-145) L 02/07/19 12:44 Potassium 4.6 mmol/L (3.6-5.0) D 02/07/19 12:44 Chloride 100.2 mmol/L (98-107) 02/07/19 12:44 Carbon Dioxide 27 mmol/L (22-30) 02/07/19 12:44 13 mmol/L 02/07/19 12:44 BUN 12 mg/dL (9-20) 02/07/19 12:44 1.1 mg/dL (0.8-1.5) 02/07/19 12:44 Estimated GFR > 60 ml/min 02/07/19 12:44 11 % 02/07/19 12:44 Glucose 98 mg/dL (75-100) 02/07/19 12:44 POC Glucose 123 (70-105) H 02/07/19 21:48 9.5 % (4-6) H 02/07/19 12:44 Calcium 8.7 mg/dL (8.4-10.2) 02/07/19 12:44 Magnesium 1.90 mg/dL (1.7-2.3) 02/07/19 14:47 0.30 mg/dL (0.1-1.2) 02/07/19 12:44 AST 17 units/L (5-40) 02/07/19 12:44 ALT 10 units/L (7-56) 02/07/19 12:44 79 units/L (35-129) 02/07/19 12:44 NT-Pro-B Natriuret Pep 335.6 pg/mL (0-900) 02/07/19 12:44 7.0 g/dL (6.3-8.2) 02/07/19 12:44 3.1 g/dL (3.9-5) L 02/07/19 12:44 0.8 % 02/07/19 12:44 TSH 3.700 mlU/mL (0.270-4.200) 02/07/19 14:47 Free T4 0.93 ng/dL (0.76-1.46) 02/07/19 14:46 - Imaging and Cardiology EKG: report reviewed (Sinus bradycardia--50/min) Chest x-ray: report reviewed (NAF) Imaging and Cardiology: CXR IMPRESSION: 1. Mild diffuse interstitial opacities are suggestive of mild pulmonary edema. Assessment and Plan Advance Directives: Yes (Full code) VTE prophylaxis?: Chemical Plan of care discussed with patient/family: Yes - Patient Problems (1) Symptomatic bradycardia Current Visit: Yes Status: Acute Plan to address problem: Stop AV isauro blockers Stop beta blockers Cardiolgy consult Atropine given (2) HTN (hypertension) Current Visit: Yes Status: Chronic Qualifiers: Hypertension type: essential hypertension Qualified Code(s): I10 - Essential (primary) hypertension Plan to address problem: Cont antihypertensives (3) IDDM (insulin dependent diabetes mellitus) Current Visit: Yes Status: Chronic Plan to address problem: Cont home Insulin and coverage Check A1c (4) Hyperlipidemia Current Visit: Yes Status: Chronic Qualifiers: Hyperlipidemia type: mixed hyperlipidemia Qualified Code(s): E78.2 - Mixed hyperlipidemia Plan to address problem: Cont statins and fenofibrate (5) Nonobstructive atherosclerosis of coronary artery Current Visit: Yes Status: Chronic Plan to address problem: Had C last week ASA and Statins (6) DVT prophylaxis Current Visit: Yes Status: Acute Plan to address problem: On Lovenox and GI prophylaxis
[2019-02-08 05:59] LABS: BUN/Creatinine Ratio 11; Blood Urea Nitrogen 11 mg/dL (9-20); Calcium 8.4 mg/dL (8.4-10.2); Hemolysis Index 2
[2019-02-08] MEDS: INSULIN NPH/REGULAR 70/30 INJ SUB-Q SCH ×2 (08:00→19:12)
[2019-02-08] MEDS ORDERED: ASPIRIN 325 MG TAB PO SCH (10:00)
[2019-02-08] MEDS: EZETIMIBE 10 MG TAB PO SCH (10:00)
[2019-02-08] MEDS ORDERED: FENOFIBRATE 145 MG TAB PO SCH (10:00)
[2019-02-08] MEDS: metFORMIN 500 MG TAB PO SCH ×2 (10:00→22:07)
[2019-02-08] MEDS ORDERED: ASPIRIN EC 81 MG TAB PO SCH (10:00)
--- NOTE | 2019-02-08 10:06 | Progress Note ---
Assessment and Plan Cont to hold all AV isauro blocking agents. Pt for PPM implantation today. The patient has been seen in conjunction with Dr. Ke Srivastava who agrees with the assessment and plan of care. - Patient Problems (1) High degree atrioventricular block Current Visit: Yes Status: Acute (2) Symptomatic bradycardia Current Visit: Yes Status: Acute (3) Nonobstructive atherosclerosis of coronary artery Current Visit: Yes Status: Chronic (4) Hyperlipidemia Current Visit: Yes Status: Chronic Qualifiers: Hyperlipidemia type: mixed hyperlipidemia Qualified Code(s): E78.2 - Mixed hyperlipidemia (5) Diabetes Current Visit: Yes Status: Chronic (6) HTN (hypertension) Current Visit: Yes Status: Chronic Qualifiers: Hypertension type: essential hypertension Qualified Code(s): I10 - Essential (primary) hypertension Subjective Date of service: 02/08/19 Principal diagnosis: intermittent complete heart block Objective Vital Signs Temp Pulse Resp BP BP Pulse Ox 02/08/19 08:00 16 02/08/19 07:48 98.4 F 55 L 18 159/74 95 02/08/19 03:25 98.5 F 51 L 16 161/66 93 02/08/19 03:00 63 02/07/19 22:51 99.1 F 45 L 18 168/55 94 02/07/19 20:00 45 L 02/07/19 19:56 33 L 02/07/19 19:27 98.5 F 35 L 18 146/61 96 02/07/19 18:21 42 L 19 151/44 93 02/07/19 18:11 44 L 16 151/44 94 02/07/19 18:01 50 L 15 151/44 92 02/07/19 17:01 42 L 12 130/59 91 02/07/19 16:15 35 L 11 L 124/59 98 02/07/19 16:01 34 L 26 H 124/59 97 02/07/19 15:45 33 L 24 120/51 99 02/07/19 15:31 32 L 17 120/51 97 02/07/19 15:15 34 L 19 126/33 97 02/07/19 15:03 37 L 20 141/62 99 02/07/19 15:01 38 L 25 H 126/33 96 02/07/19 14:45 35 L 22 143/112 98 02/07/19 14:31 40 L 10 L 143/112 93 02/07/19 14:15 34 L 20 141/62 97 02/07/19 14:03 37 L 21 141/62 99 02/07/19 14:01 36 L 26 H 141/62 97 02/07/19 13:45 33 L 19 139/65 98 02/07/19 13:31 35 L 22 139/65 98 02/07/19 13:15 39 L 16 132/62 97 02/07/19 13:01 36 L 14 132/62 96 02/07/19 12:45 36 L 20 128/59 96 02/07/19 12:31 42 L 15 128/59 97 02/07/19 12:15 39 L 20 133/63 96 02/07/19 12:01 38 L 22 133/63 98 02/07/19 11:59 18 95 02/07/19 11:45 98.1 F 42 L 16 124/64 124/64 97 02/07/19 11:30 52 L 15 124/64 99 02/07/19 11:24 17 - Physical Examination HEENT: Positive: PERRL, Normocephaly, Mucus Membranes Moist Neck: Positive: neck supple, trachea midline Neuro: Positive: Grossly Intact Abdomen: Positive: Soft, Active Bowel Sounds. Negative: Tender Skin: Negative: Rash Musculoskeletal: No Pain Extremities: Absent: edema - Labs and Meds Cardiac Enzymes 02/07/19 Range/Units 12:44 AST 17 (5-40) units/L Coagulation 02/07/19 02/08/19 Range/Units 12:44 04:47 PT 13.3 13.5 (12.2-14.9) Sec. INR 1.04 1.06 (0.87-1.13) APTT 33.0 (24.2-36.6) Sec. CBC 02/07/19 02/08/19 Range/Units 12:44 04:47 WBC 9.6 9.2 (4.5-11.0) K/mm3 RBC 5.22 H 4.98 (3.65-5.03) M/mm3 Hgb 12.9 12.1 (11.8-15.2) gm/dl Hct 40.4 38.3 (35.5-45.6) % Plt Count 251 243 (140-440) K/mm3 Lymph # 2.4 (1.2-5.4) K/mm3 [place] # 0.9 H (0.0-0.8) K/mm3 Eos # 0.2 (0.0-0.4) K/mm3 Baso # 0.1 (0.0-0.1) K/mm3 Comprehensive Metabolic Panel 02/07/19 02/08/19 Range/Units 12:44 04:47 Sodium 136 L 141 (137-145) mmol/L Potassium 4.6 D 3.9 (3.6-5.0) mmol/L Chloride 100.2 105.3 (98-107) mmol/L Carbon Dioxide 27 24 (22-30) mmol/L BUN 12 11 (9-20) mg/dL Creatinine 1.1 1.0 (0.8-1.5) mg/dL Glucose 98 172 H (75-100) mg/dL Calcium 8.7 8.4 (8.4-10.2) mg/dL AST 17 (5-40) units/L ALT 10 (7-56) units/L Alkaline Phosphatase 79 (35-129) units/L Total Protein 7.0 (6.3-8.2) g/dL Albumin 3.1 L (3.9-5) g/dL - Imaging and Cardiology EKG: report reviewed (Sinus bradycardia--50/min) Echo: report reviewed (01/20/2019 showed EF 55-60%, mild LVH. ) Cardiac cath: report reviewed (02/04/2019 which showed moderate disease in mid and distal RCA, medical therapy recommended) AV and intraventricular conduction: Mobitz II 2 AV block
[2019-02-08] MEDS: FAMOTIDINE 20 MG/2 ML INJ IV SCH ×2 (11:30→22:08)
[2019-02-08] MEDS ORDERED: ceFAZolin/Water 2 GM/20 ML 2 GM/20 ML SYRINGE IV NR (13:00)
[2019-02-08] MEDS ORDERED: SODIUM CHLORIDE 0.9% 1000 ML 1,000 ML IV SCH (13:00)
--- NOTE | 2019-02-08 14:32 | Anesthesia Day of Surgery ---
Anesthesia Day of Surgery - Day of Surgery Patient Examined: Yes Patient H&P Reviewed: Yes Patient is NPO: Yes Cardiac Clearance: Yes
--- NOTE | 2019-02-08 14:34 | Anesthesia Consultation ---
Anesthesia Consult and Med Hx Date of service: 02/08/19 - Airway Anesthetic Teeth Evaluation: Dentures, Edentulous ROM Head & Neck: Adequate Mental/Hyoid Distance: Adequate Mallampati Class: Class II Intubation Access Assessment: Good - Pre-Operative Health Status ASA Pre-Surgery Classification: ASA3 Proposed Anesthetic Plan: General, MAC - Pulmonary Hx Smoking: Yes (Cigars) Hx Asthma: No COPD: No Hx Pneumonia: No - Cardiovascular System Hx Hypertension: Yes Hx Coronary Artery Disease: No (Cath [id number] moderate disease in mid and distal RCA, medical therap) Hx Heart Attack/AMI: No Hx Cardia Arrhythmia: Yes - Central Nervous System Hx Psychiatric Problems: No - Endocrine Hx End Stage Renal Disease: No Hx Insulin Dependent Diabetes: Yes - Hematic Hx Anemia: No Hx Sickle Cell Disease: No - Other Systems Hx Cancer: No
[2019-02-08] MEDS ORDERED: ceFAZolin/Water 2 GM/20 ML 2 GM/20 ML SYRINGE IV ONE (14:40)
[2019-02-08] MEDS ORDERED: SODIUM CHLORIDE IRRI 500 ML 500 ML IR ONE (14:40)
[2019-02-08] MEDS ORDERED: BUPIVACAINE/PF (0.5%) 5 MG/1 ML 30 ML VIAL INFILTRATI ONE (14:40)
[2019-02-08] MEDS ORDERED: LIDOCAINE (1%) 10 MG/1 ML VIAL 20 ML MDV ONE (14:40)
[2019-02-08] MEDS ORDERED: SODIUM CHLORIDE 0.9% 1000 ML 1,000 ML ONE (14:46)
[2019-02-08] MEDS ORDERED: PROPOFOL 200 MG/20 ML VIAL IV ONE ×4 (15:34)
[2019-02-08] MEDS ORDERED: GLYCOPYRROLATE 0.4 MG/2 ML INJ ONE (15:41)
[2019-02-08] MEDS ORDERED: SUCCINYLCHOLINE CHLORIDE 200 MG/10 ML INJ MDV ONE (15:41)
[2019-02-08] MEDS ORDERED: ATROPINE 0.4 MG/1 ML INJ ONE (15:41)
[2019-02-08] MEDS ORDERED: LIDOCAINE MPF (2%) 20 MG/1 ML VIAL 5 ML ONE (15:41)
[2019-02-08] MEDS ORDERED: PHENYLEPHRINE/NS 1,000 MCG/10 ML SYRINGE (OR USE) IV ONE (15:41)
[2019-02-08] MEDS ORDERED: fentaNYL 100 MCG/2 ML INJ ONE (15:41)
[2019-02-08] MEDS ORDERED: .VANCOMYCIN VIAL 1,000 MG in SODIUM CHLORIDE IRRI 1000 ML 1,000 ML IRRIGATION ONE ×2 (16:16→16:49)
[2019-02-08] MEDS: SODIUM CHLORIDE IRRI 1000 ML 1,000 ML, .VANCOMYCIN VIAL 1,000 MG IR ONE ×2 (16:17→17:47)
--- NOTE | 2019-02-08 17:12 | Progress Note ---
Assessment and Plan Assessment and plan: -- Symptomatic bradycardia Current Visit: Yes Status: Acute S/P Dual chamber PPM placement today -- HTN (hypertension); moderate control Current Visit: Yes Status: Chronic Cont antihypertensives -- IDDM (insulin dependent diabetes mellitus) Current Visit: Yes Status: Chronic Accu-Chek sliding scale coverage and ADA diet insulin as needed HbA1c 9.5 -- Hyperlipidemia Current Visit: Yes Status: Chronic Cont statins and fenofibrate --Nonobstructive atherosclerosis of coronary artery Current Visit: Yes Status: Chronic LHC on 02/04/2019 showed moderate disease in the mid and distal RCA Recommend medical management Patient noted to have junctional rhythm, during his cardiology follow-up visit, admitted to the hospital underwent, dual-chamber PPM placement --DVT prophylaxis Current Visit: Yes Status: Acute On Lovenox and GI prophylaxis Disposition; continue inpatient management Possible discharge in 1-2 days if stable History Interval history: Patient scheduled for permanent pacemaker placement today Vital signs noted Patient has no new complaints Hospitalist Physical - Constitutional Vitals: Temp Pulse Resp BP Pulse Ox 98.4 F 39 L 16 159/74 95 02/08/19 07:48 02/08/19 11:00 02/08/19 08:00 02/08/19 07:48 02/08/19 07:48 General appearance: Present: no acute distress, well-nourished - EENT Eyes: Present: PERRL, EOM intact - Neck Neck: Present: supple, normal ROM - Respiratory Respiratory effort: normal Respiratory: bilateral: diminished, negative: rales, rhonchi, wheezing - Cardiovascular Rhythm: regular Heart Sounds: Present: S1 & S2 - Extremities Extremities: no ischemia, No edema - Abdominal General gastrointestinal: soft, non-tender, non-distended, normal bowel sounds - Integumentary Integumentary: Present: clear, warm - Psychiatric Psychiatric: appropriate mood/affect, cooperative - Neurologic Neurologic: CNII-XII intact, moves all extremities Results - Labs CBC & Chem 7: 02/08/19 04:47 02/08/19 04:47 Labs: Laboratory Last Values WBC 9.2 K/mm3 (4.5-11.0) 02/08/19 04:47 RBC 4.98 M/mm3 (3.65-5.03) 02/08/19 04:47 Hgb 12.1 gm/dl (11.8-15.2) 02/08/19 04:47 Hct 38.3 % (35.5-45.6) 02/08/19 04:47 MCV 77 fl (84-94) L 02/08/19 04:47 MCH 24 pg (28-32) L 02/08/19 04:47 MCHC 32 % (32-34) 02/08/19 04:47 RDW 17.8 % (13.2-15.2) H 02/08/19 04:47 Plt Count 243 K/mm3 (140-440) 02/08/19 04:47 Lymph % (Auto) 24.8 % (13.4-35.0) 02/07/19 12:44 [place] % (Auto) 9.8 % (0.0-7.3) H 02/07/19 12:44 Eos % (Auto) 1.6 % (0.0-4.3) 02/07/19 12:44 Baso % (Auto) 0.9 % (0.0-1.8) 02/07/19 12:44 Lymph # 2.4 K/mm3 (1.2-5.4) 02/07/19 12:44 [place] # 0.9 K/mm3 (0.0-0.8) H 02/07/19 12:44 Eos # 0.2 K/mm3 (0.0-0.4) 02/07/19 12:44 Baso # 0.1 K/mm3 (0.0-0.1) 02/07/19 12:44 Seg Neutrophils % 62.9 % (40.0-70.0) 02/07/19 12:44 Seg Neutrophils # 6.0 K/mm3 (1.8-7.7) 02/07/19 12:44 PT 13.5 Sec. (12.2-14.9) 02/08/19 04:47 INR 1.06 (0.87-1.13) 02/08/19 04:47 APTT 33.0 Sec. (24.2-36.6) 02/07/19 12:44 Sodium 141 mmol/L (137-145) 02/08/19 04:47 Potassium 3.9 mmol/L (3.6-5.0) 02/08/19 04:47 Chloride 105.3 mmol/L (98-107) 02/08/19 04:47 Carbon Dioxide 24 mmol/L (22-30) 02/08/19 04:47 16 mmol/L 02/08/19 04:47 BUN 11 mg/dL (9-20) 02/08/19 04:47 1.0 mg/dL (0.8-1.5) 02/08/19 04:47 Estimated GFR > 60 ml/min 02/08/19 04:47 11 % 02/08/19 04:47 Glucose 172 mg/dL (75-100) H 02/08/19 04:47 POC Glucose 134 (70-105) H 02/08/19 08:08 9.5 % (4-6) H 02/07/19 12:44 Calcium 8.4 mg/dL (8.4-10.2) 02/08/19 04:47 Magnesium 1.90 mg/dL (1.7-2.3) 02/07/19 14:47 0.30 mg/dL (0.1-1.2) 02/07/19 12:44 AST 17 units/L (5-40) 02/07/19 12:44 ALT 10 units/L (7-56) 02/07/19 12:44 79 units/L (35-129) 02/07/19 12:44 NT-Pro-B Natriuret Pep 335.6 pg/mL (0-900) 02/07/19 12:44 7.0 g/dL (6.3-8.2) 02/07/19 12:44 3.1 g/dL (3.9-5) L 02/07/19 12:44 0.8 % 02/07/19 12:44 TSH 3.700 mlU/mL (0.270-4.200) 02/07/19 14:47 Free T4 0.93 ng/dL (0.76-1.46) 02/07/19 14:46 Active Medications - Current Medications Current Medications: Generic Name Dose Route Start Last Admin Trade Name Freq PRN Reason Stop Dose Admin Acetaminophen 650 mg 02/07/19 17:31 Tylenol PO Q4H PRN Pain MILD(1-3)/Fever >100.5/AYALA Aspirin 325 mg 02/08/19 10:00 Aspirin PO QDAY MASHA Atorvastatin Calcium 40 mg 02/07/19 22:00 02/07/19 22:30 Lipitor PO 40 mg QHS [facility] Administration Ezetimibe 10 mg 02/08/19 10:00 Zetia PO DAILY [facility] Enoxaparin Sodium 40 mg 02/08/19 22:00 Lovenox SUB-Q QDAY@2200 [facility] Famotidine 20 mg 02/07/19 22:00 02/07/19 22:30 Pepcid IV 20 mg BID [facility] Administration Hydromorphone HCl 0.5 mg 02/07/19 17:31 Dilaudid IV Q3H PRN Pain , Severe (7-10) Sodium Chloride 1,000 mls @ 75 mls/hr 02/07/19 15:00 02/07/19 22:35 Nacl 0.9% 1000 Ml IV 75 mls/hr DIRECT MASHA Administration Sodium Chloride 1,000 mls @ 42 mls/hr 02/08/19 13:00 02/08/19 14:18 Nacl 0.9% 1000 Ml IV 42 mls/hr DIRECT [facility] Administration Insulin Human Isoph/Insulin Regular 40 unit 02/07/19 20:00 02/07/19 22:30 Humulin 70/30 SUB-Q Not Given QPM [facility] Insulin Human Isoph/Insulin Regular 70 unit 02/08/19 08:00 02/08/19 08:00 Humulin 70/30 SUB-Q Not Given QAMDIAB [facility] Metformin HCl 500 mg 02/07/19 22:00 02/07/19 22:30 Glucophage PO Not Given BID [facility] Miscellaneous Medication 135 mg 02/07/19 17:45 Fenofibric Acid (Choline) [Fenofibric Acid] PO DAILY [facility] Ondansetron HCl 4 mg 02/07/19 17:31 Zofran IV Q8H PRN Nausea And Vomiting Oxycodone/Acetaminophen 1 tab 02/07/19 17:31 Percocet 5/325 PO Q6H PRN Pain, Moderate (4-6) Sodium Chloride 10 ml 02/07/19 22:00 02/07/19 22:30 Sodium Chloride Flush Syringe 10 Ml IV 10 ml BID [facility] Administration Sodium Chloride 10 ml 02/07/19 17:31 Sodium Chloride Flush Syringe 10 Ml IV PRN PRN LINE FLUSH Nutrition/Malnutrition Assess - Dietary Evaluation Nutrition/Malnutrition Findings: Nutrition Notes Start: 02/08/19 12:02 Freq: Status: Active Protocol: Document 02/08/19 12:02 RS (Rec: 02/08/19 12:10 RS [id number]) Co-Sign 02/08/19 12:02 RM Nutrition Notes 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 Dietitian consulted pt about his diabetes and offered education. Pt was disinterested in education and declined it. Pt reported good appetite and eating 100% of his dinner the night before. Burn Absent Trauma Absent Food Allergy No Nutrition Intervention Revisit per MD consult or patient Sign Off request:
[2019-02-08] MEDS: hydrALAZINE 20 MG/1 ML INJ ONE ×2 (17:56→18:12)
--- NOTE | 2019-02-08 18:30 | Post Anesthesia Evaluation ---
- Post Anesthesia Evaluation Patient Participated: Yes Airway Patent: Yes Stable Respiratory Function: Yes Nausea/Vomiting: No Temp > 96.8F: Yes Pain Manageable: Yes Adequeate Hydration: Yes Anesthesia Complications: No Block Receding Appropriately: Not Applicable Patient on Ventilator: No
[2019-02-08] MEDS ORDERED: hydrALAZINE 20 MG/1 ML INJ IV ONE (18:56)
[2019-02-08] MEDS: hydrALAZINE 20 MG/1 ML INJ IV PRN (19:14)
[2019-02-08] MEDS: oxyCODONE /ACETAMINOPHEN 5-325MG TAB PO PRN (19:16)
[2019-02-08] MEDS: ceFAZolin/NS 1 GM/50 ML 1 GM/50 ML BAG IV SCH (19:55)
[2019-02-08] MEDS ORDERED: ENOXAPARIN 40 MG/0.4 ML INJ SUB-Q SCH (22:00)
[2019-02-08] MEDS: hydrALAZINE 25 MG TAB PO SCH (22:08)
--- NOTE | 2019-02-08 22:38 | XRay Report ---
CHEST 1 VIEW INDICATION / CLINICAL INFORMATION: Pacemaker Postop. COMPARISON: 02/07/2019 FINDINGS: SUPPORT DEVICES: None. HEART / MEDIASTINUM: Pacemaker control unit is on the left with leads entering from a left subclavian approach. LUNGS / PLEURA: There is mild interstitial disease bilaterally characteristic of interstitial edema. No pneumothorax. ADDITIONAL FINDINGS: No significant additional findings. IMPRESSION: 1. No pneumothorax is seen. There is mild bilateral interstitial disease characteristic of edema. Signer Name: Saman Alexander MD Signed: 02/08/2019 10:34 PM Workstation Name: [id number]
[2019-02-09] MEDS: ceFAZolin/NS 1 GM/50 ML 1 GM/50 ML BAG IV SCH (05:39)
[2019-02-09] MEDS: oxyCODONE /ACETAMINOPHEN 5-325MG TAB PO PRN ×2 (05:39→14:31)
[2019-02-09] MEDS: hydrALAZINE 25 MG TAB PO SCH ×2 (05:39→14:31)
[2019-02-09] MEDS ORDERED: MORPHINE 2 MG/1 ML INJ IV PRN (09:30)
--- NOTE | 2019-02-09 09:38 | Progress Note ---
Assessment and Plan Currently stable cardiac status. S/p PPM implantation yesterday. Post-procedure CXR with no pneumothorax. Device interrogation this AM revealed normal device function. Optimize BPs - resume home coreg. Pt may discharge home on current cardiac regimen. Follow up in our [place] office for post-op device clinic on 02/16/2019 @ 11:00AM. Recommend follow up in our office with Dr. Hanks within 1-2 weeks of hospital discharge ([phone]). Pt and pt's verbalize understanding. The patient has been seen in conjunction with Dr. Ke Srivastava who agrees with the assessment and plan of care. - Patient Problems (1) Cardiac pacemaker in situ Current Visit: Yes Status: Chronic (2) High degree atrioventricular block Current Visit: Yes Status: Acute (3) Symptomatic bradycardia Current Visit: Yes Status: Acute (4) Nonobstructive atherosclerosis of coronary artery Current Visit: Yes Status: Chronic (5) Hyperlipidemia Current Visit: Yes Status: Chronic Qualifiers: Hyperlipidemia type: mixed hyperlipidemia Qualified Code(s): E78.2 - Mixed hyperlipidemia (6) Diabetes Current Visit: Yes Status: Chronic (7) HTN (hypertension) Current Visit: Yes Status: Chronic Qualifiers: Hypertension type: essential hypertension Qualified Code(s): I10 - Essential (primary) hypertension Subjective Date of service: 02/09/19 Principal diagnosis: intermittent complete heart block Interval history: pt resting in bed, no current cardiac complaints. s/p PPM implantation yesterday. pacing noted on telemetry. Objective Last Vital Signs Temp 98.0 F 02/09/19 07:16 Pulse 65 02/09/19 08:00 Resp 18 02/09/19 08:00 BP 184/86 02/09/19 07:16 Pulse Ox 95 02/09/19 03:59 - Physical Examination General: No Apparent Distress HEENT: Positive: PERRL, Normocephaly, Mucus Membranes Moist Neck: Positive: neck supple, trachea midline Cardiac: Positive: Reg Rate and Rhythm, S1/S2 Lungs: Positive: clear to auscultation Neuro: Positive: Grossly Intact Abdomen: Positive: Soft, Active Bowel Sounds. Negative: Tender Skin: Negative: Rash Incision: Incision Site (left PPM implantation site pressure dressing removed, site covered with telfa and tegaderm dressing, minimal old blood noted on telfa, no current bleeding or hematoma) Musculoskeletal: No Pain Extremities: Absent: edema - Imaging and Cardiology EKG: report reviewed (Sinus bradycardia--50/min) Echo: report reviewed (01/20/2019 showed EF 55-60%, mild LVH. ) Cardiac cath: report reviewed (02/04/2019 which showed moderate disease in mid and distal RCA, medical therapy recommended) - Telemetry EKG Rhythm: Paced AV and intraventricular conduction: Mobitz II 2 AV block
[2019-02-09] MEDS ORDERED: carvediloL 6.25 MG TAB PO SCH (10:00)
[2019-02-09] MEDS ORDERED: LISINOPRIL 20 MG TAB PO SCH (10:00)
[2019-02-09] MEDS: EZETIMIBE 10 MG TAB PO SCH (10:04)
[2019-02-09] MEDS: INSULIN NPH/REGULAR 70/30 INJ SUB-Q SCH (10:04)
[2019-02-09] MEDS: metFORMIN 500 MG TAB PO SCH (10:04)
[2019-02-09] MEDS: FAMOTIDINE 20 MG/2 ML INJ IV SCH (10:05)
--- NOTE | 2019-02-09 12:29 | Discharge Summary ---
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 Pt underwent OP LHC [after abnormal stress test ]on 02/04/2019 which showed moderate disease in mid and distal RCA, medical therapy recommended. He presented to cardiology office today for post-cath f/u and c/o dizziness since this morning. ECG in office showed junctional rhythm at 32 bpm, complete AV block with underlying junctional escape beatsand thus pt was referred to ED for further eval/management. Following arrival to ED, pt found to be in sinus bradycardia HR 40s with intermittent junctional rhythm and 2nd degree type I and II AVB. Beta blockers stopped,evaluated by cardiology,had dual chamber PPM placement.Patients symptoms improved.Today patient is comfortable,no new complaints,vital signs stable.Physical exam is unremarkable. Stable at discharge. Discharge Diagnosis: -- Symptomatic bradycardia Current Visit: Yes Status: Acute S/P Dual chamber PPM placement -- HTN (hypertension); moderate control Current Visit: Yes Status: Chronic Cont antihypertensives -- IDDM (insulin dependent diabetes mellitus) Current Visit: Yes Status: Chronic Accu-Chek sliding scale coverage and ADA diet insulin as needed HbA1c 9.5 -- Hyperlipidemia Current Visit: Yes Status: Chronic Cont statins and fenofibrate --Nonobstructive atherosclerosis of coronary artery Current Visit: Yes Status: Chronic LHC on 02/04/2019 showed moderate disease in the mid and distal RCA Recommend medical management Stable at discharge Disposition: DC-01 TO HOME OR SELFCARE Time spent for discharge: 32 min Core Measure Documentation - Palliative Care Palliative Care/ Comfort Measures: Not Applicable - Core Measures Any of the following diagnoses?: none Exam - Constitutional Vitals: Temp Pulse Resp BP Pulse Ox 98.0 F 67 18 184/86 95 02/09/19 07:16 02/09/19 11:00 02/09/19 08:00 02/09/19 10:43 02/09/19 03:59 General appearance: Present: no acute distress, well-nourished, obese - EENT Eyes: Present: PERRL, EOM intact - Neck Neck: Present: supple, normal ROM - Respiratory Respiratory effort: normal Respiratory: bilateral: diminished, negative: rales, rhonchi, wheezing - Cardiovascular Rhythm: regular Heart Sounds: Present: S1 & S2 - Extremities Extremities: no ischemia, No edema Peripheral Pulses: within normal limits - Abdominal General gastrointestinal: Present: soft, non-tender, non-distended, normal bowel sounds - Integumentary Integumentary: Present: clear, warm - Musculoskeletal Musculoskeletal: strength equal bilaterally - Psychiatric Psychiatric: appropriate mood/affect, cooperative - Neurologic Neurologic: CNII-XII intact, moves all extremities Plan Activity: no restrictions Diet: diabetic Special Instructions: smoking cessation Additional Instructions: follow post Pacemaker surgery instructions,continue arm sling as instructed Follow up with: CRYS REYES MD [Primary Care Provider] - 3-5 Days BEBE COTO MD [Staff Physician] - 7 Days (Follow up in our [place] office for post-op device clinic on 02/16/2019 @ 11:00AM. ) Prescriptions: Nicotine [Habitrol] 14 mg TD DAILY #30 patch oxyCODONE /ACETAMINOPHEN [Percocet 5/325 mg] 1 tab PO BID PRN #10 tablet PRN Reason: Pain, Moderate (4-6)
[2019-02-09] MEDS: hydrALAZINE 20 MG/1 ML INJ IV PRN (13:15)
[2019-02-09 15:08] VITALS: BP 161/82
[2019-02-10] MEDS ORDERED: ASPIRIN 81 MG TAB CHEW PO SCH (10:00)
== END 2019-02-09 16:21 | disposition home or self-care (01) | DRG 244 ==
LOC: ED 11:13 → 4A 17:31 → OBSVTOIN 02-08 08:50
PROVIDERS: ADMIT Internal Medicine; ATTEND Internal Medicine
PROC: 0JH606Z Insertion of Pacemaker, Dual Chamber into Chest Subcutaneous Tissue and Fascia, Open Approach (ICD-10-PCS; principal; 2019-02-08)
PROC: 02H63JZ Insertion of Pacemaker Lead into Right Atrium, Percutaneous Approach (ICD-10-PCS; 2019-02-08)
PROC: 02HK3JZ Insertion of Pacemaker Lead into Right Ventricle, Percutaneous Approach (ICD-10-PCS; 2019-02-08)
PROC: 4B02XSZ Measurement of Cardiac Pacemaker, External Approach (ICD-10-PCS; 2019-02-09)
DX: I44.2 Atrioventricular block, complete (principal); I25.10 Atherosclerotic heart disease of native coronary artery without angina pectoris; E78.2 Mixed hyperlipidemia; F17.210 Nicotine dependence, cigarettes, uncomplicated; E11.9 Type 2 diabetes mellitus without complications; I11.9 Hypertensive heart disease without heart failure; Z79.4 Long term (current) use of insulin; Z79.82 Long term (current) use of aspirin
CPT/HCPCS: 33208; 36415; 71045; 80048; 80053; 82962; 83036; 83735; 83880; 84439; 84443; 85025; 85027; 85610; 85730; 93005; 93010; 96360; 99406; G0378; A9270-GY; C1779; C1785; C1892; J0330; J0360; J0461; J0690; J1650; J1815; J2370; J2405; J2704; J3010; J3370; J7030; Q9967